=== PATIENT | female | born 1970 | race Caucasian/White ===

== ENCOUNTER 2022-08-26 12:51 | Emergency (ER) | payer OTHER ==
[2022-08-26 13:02] VITALS: BP 102/58
[2022-08-26] MEDS ORDERED: lidocaine 1% 20 ML MDV SUBQ ONE (13:10)
[2022-08-26] MEDS ORDERED: TETANUS/DIPHTHERIA/PERTUSSIS 0.5 ML SYRINGE IM ONE (13:13)
--- NOTE | 2022-08-26 13:14 | ED Physician Documentation ---
PD HPI UPPER EXT INJURY - Stated complaint Stated Complaint: L POINTER FINGER LAC - Chief complaint Chief Complaint: Laceration - History obtained from History obtained from: Patient (Right-handed woman with unknown tetanus status cut the end of her left second finger with a knife while opening a bag at home just prior to arrival.) PD PAST MEDICAL HISTORY - Present Medications Home Medications: Ambulatory Orders Medication Instructions Recorded Confirmed Sertraline HCl 100 mg PO 08/26/22 Sumatriptan Succinate [Imitrex] 50 mg PO ONCE PRN 08/26/22 08/26/22 - Allergies Allergies/Adverse Reactions: Allergies Allergy/AdvReac Type Severity Reaction Status Date / Time latex Allergy Rash Verified 08/26/22 13:03 minocycline Allergy Dizziness Verified 08/26/22 13:03 PD ED PE NORMAL - Vitals Vital signs reviewed: Yes - General General: Alert and oriented X 3, No acute distress - Extremities Extremities: Other (On the tip of the tuft of the left index finger not involving the nail there is a slightly gaping laceration without distal neurovascular compromise.) - Neuro Neuro: Alert and oriented X 3, Normal speech Results - Vitals Vitals: Vital Signs - 24 hr 08/26/22 12:58 Temperature 36.7 C Heart Rate 65 Respiratory 14 Rate Blood Pressure 102/58 L O2 Saturation 98 Oxygen O2 Source Room air Procedures - Laceration (location) Left second finger Length in cm: 1 Wound type: Linear, Into subcut fat Neurovascular status: Sensory intact, Motor intact Anesthesia: Lidocaine 1% (Digital block with excellent anesthesia) Wound preparation: Irrigated copiously NS Skin layer closure: Nylon, Interrupted, Size #-0 - enter number (4-0), Sutures - enter # (2) Other: Patient tolerated well, No complications, Neurovascular intact, Tetanus booster given Departure - Departure Disposition: 01 Home, Self Care Clinical Impression: Finger laceration Qualifiers: Encounter type: initial encounter Finger: index finger Damage to nail status: without damage Foreign body presence: without foreign body Laterality: left Qualified Code(s): S61.211A - Laceration without foreign body of left index finger without damage to nail, initial encounter Condition: Good Record reviewed to determine appropriate education?: Yes Instructions: ED Laceration Hand Comments: Come back for any signs of infection which would include: Redness, swelling, drainage, increased pain, or fevers. You can wash it soap and water. Keep it covered and moist with bacitracin ointment which is available over the counter; avoid neosporin. Follow-up with your physician in About 14 days for suture removal.
== END 2022-08-26 13:40 | disposition home or self-care (01) ==
LOC: ED 12:51
DX: S61.211A Laceration without foreign body of left index finger without damage to nail, initial encounter (principal); W26.0XXA Contact with knife, initial encounter; Y92.009 Unspecified place in unspecified non-institutional (private) residence as the place of occurrence of the external cause; Z23 Encounter for immunization
CPT/HCPCS: 12001; 99282